=== PATIENT | male | born 1995 | race Two or more races ===

== ENCOUNTER 2019-01-06 10:59 | Emergency (ER) | payer SELFPAY ==
[~2019-01-06] VITALS: Ht 167.6 cm; Wt 81.8 kg
[2019-01-06 11:01] VITALS: BP 124/82
== END 2019-01-06 14:34 | disposition left against medical advice (07) ==
LOC: EMS 11:04
DX: S61.210A Laceration without foreign body of right index finger without damage to nail, initial encounter (principal); W45.8XXA Other foreign body or object entering through skin, initial encounter; Y93.89 Activity, other specified; Y92.89 Other specified places as the place of occurrence of the external cause; Y99.8 Other external cause status; Z53.21 Procedure and treatment not carried out due to patient leaving prior to being seen by health care provider